=== PATIENT | male | born 1940 | race Caucasian/White ===

== ENCOUNTER 2021-05-25 15:11 | Outpatient (CLI) | payer MEDICARE, OTHER ==
[2021-05-25 15:42] LABS: ABG BASE EXCESS -0.7 mmol/L (-2.0-2.0); ABG HCO3 22.7 mmol/L (22.0-26.0); ABG OXYGEN SATURATION 97.1 % (94-97); ABG PCO2 (T) 34.1 mmHg (35.0-48.0); ABG PO2 (T) 87.7 mmHg (75.0-100.0); ALLEN'S TEST POSITIVE; FCOHb 0.7 % (0.0-3.9); FMetHb 0.1 % (0.0-1.5); FO2Hb 96.3 % (94-97); TOTAL HEMOGLOBIN 14.7 G/dl (14.0-18.0)
== END 2021-05-25 23:59 | disposition home or self-care (01) ==
LOC: RT 15:11
PROVIDERS: ATTEND Nurse Practitioner Family
DX: J84.112 Idiopathic pulmonary fibrosis (principal)
CPT/HCPCS: 36600; 82803; 85018; 94010; 94727; 94729